=== PATIENT | male | born 2000 | race Two or more races ===

== ENCOUNTER 2019-07-03 09:48 | Emergency (ER) | payer OTHER ==
[2019-07-03 09:52] VITALS: BP 124/66; PULSE 81; TEMP 97.6; BMI 25.2
[2019-07-03] MEDS ORDERED: LORazepam 0.5 MG TABLET PO ONE (10:13)
--- NOTE | 2019-07-03 10:22 | PDOC ---
History of Present Illness - General History Source: Patient - History of Present Illness Timing/Duration: other (this am) <Fariba ColinPierreLori - Last Filed: 07/03/19 11:12> <Simi Franks - Last Filed: 07/03/19 12:13> - General Chief Complaint: Lightheaded Stated Complaint: DIZZINESS Time Seen by Provider: 07/03/19 10:08 Past History - Past Medical History COPD: No Other medical history: psoriasis - Suicide/Smoking/Psychosocial Hx Smoking History: Never smoked Information on smoking cessation initiated: No Hx Alcohol Use: No Drug/Substance Use Hx: No Substance Use Type: None <Fariba ColinPierreLori - Last Filed: 07/03/19 11:12> <Simi Franks - Last Filed: 07/03/19 12:13> - Past Medical History Allergies/Adverse Reactions: Allergies Allergy/AdvReac Type Severity Reaction Status Date / Time No Known Allergies Allergy Verified 07/03/19 09:52 Home Medications: Ambulatory Orders Famotidine [Pepcid] 40 mg PO DAILY #30 tablet 12/16/15 Fluoxetine HCl [Prozac] 20 mg PO DAILY 12/16/15 Ondansetron [Zofran *Odt*] 4 mg SL TID #30 od.tablet 12/16/15 Review of Systems - Review of Systems Constitutional: No: Chills, Fever HEENTM: No: Blurred Vision Respiratory: No: Cough, Shortness of Breath Cardiac (ROS): Yes: Lightheadedness. No: Chest Pain, Palpitations ABD/GI: No: Nausea, Vomiting Neurological: Yes: Dizziness. No: Headache, Numbness, Tingling, Weakness <Fariba ColinPierreLori - Last Filed: 07/03/19 11:12> *Physical Exam - Vital Signs Last Vital Signs Temp Pulse Resp BP Pulse Ox 97.6 F 81 17 124/66 100 07/03/19 09:50 07/03/19 09:50 07/03/19 09:50 07/03/19 09:50 07/03/19 09:50 - Physical Exam General Appearance: Yes: Appropriately Dressed. No: Apparent Distress HEENT: positive: Normal Voice Neck: positive: Supple Respiratory/Chest: positive: Lungs Clear, Normal Breath Sounds. negative: Respiratory Distress Cardiovascular: positive: Regular Rate, S1, S2 Integumentary: positive: Dry, Warm Neurologic: positive: Fully Oriented, Alert, Normal Mood/Affect, Motor Strength 5/5 <Kamryn Colin - Last Filed: 07/03/19 11:12> - Vital Signs Last Vital Signs Temp Pulse Resp BP Pulse Ox 97.6 F 81 17 124/66 100 07/03/19 09:50 07/03/19 09:50 07/03/19 09:50 07/03/19 09:50 07/03/19 09:50 <Simi Franks - Last Filed: 07/03/19 12:13> ED Treatment Course - Medications Given in the ED: ED Medications Discontinued Medications Generic Name Dose Route Start Last Admin Trade Name Florinda PRN Reason Stop Dose Admin Lorazepam 0.5 mg 07/03/19 10:13 07/03/19 10:36 Ativan - PO 07/03/19 10:14 0.5 mg ONCE ONE Administration <Simi Franks - Last Filed: 07/03/19 12:13> Medical Decision Making - Medical Decision Making 07/03/19 10:16 19-year-old male, history of ADHD and bipolar disorder, only on prozac currently , here with dizziness. Patient states while resting this a.m. suddenly had sensation of the room spinning w/ periods of feeling lightheaded. No exacerbating or alleviating factors, but has since improved. No headache, visual changes, nausea, vomiting, focal weakness, chest pain or shortness of breath. Pt states he's had similar episodes before. Of note, was seen here in 2014 for chest pain and dizziness with negative workup including TSH. Patient states he was recently restarted on Prozac but has taken Prozac in the past, and unsure if he had similar dizziness with meds. Also No SI or HI. States he currently feels mildly anxious See exam Dizziness Recurrent Neg w/u in past ?anxiety component -small dose of anxiolytic here -EKG -anticipate dc w/ psych and PMD f/u 07/03/19 11:12 EKG wnl. Pt well enough to be discharged to f/u with his psychiatrist and PMD <Kamryn Colin - Last Filed: 07/03/19 11:12> *DC/Admit/Observation/Transfer <Kamryn Colin - Last Filed: 07/03/19 11:12> - Attestations Physician Attestion: I reviewed the case with the mid-level practitioner and agree with the mid- level practitioner's assessment, diagnosis and disposition. <Simi Franks - Last Filed: 07/03/19 12:13> Diagnosis at time of Disposition: Dizziness - Discharge Dispostion Disposition: HOME Condition at time of disposition: Improved - Patient Instructions Additional Instructions: Please follow up with your psychiatrist and PMD Return to ED for worsening of symptoms
[2019-07-03] MEDS ORDERED: LORazepam 0.5 MG TABLET ONE (10:31)
--- NOTE | 2019-07-03 12:50 | EKG ---
Test Reason : Blood Pressure : / mmHG Vent. Rate : 084 BPM Atrial Rate : 084 BPM P-R Int : 146 ms QRS Dur : 086 ms QT Int : 364 ms P-R-T Axes : 070 084 051 degrees QTc Int : 430 ms NORMAL SINUS RHYTHM NORMAL ECG WHEN COMPARED WITH ECG OF 16-DEC-2015 19:24, NO SIGNIFICANT CHANGE WAS FOUND Confirmed by DEANNE BACON MD ([id number]) on 07/03/2019 12:50:47 PM Referred By: Confirmed By:DEANNE BACON MD
== END 2019-07-03 11:00 | disposition home or self-care (01) ==
LOC: JER 09:48
DX: R42 Dizziness and giddiness (principal); F31.9 Bipolar disorder, unspecified; F90.9 Attention-deficit hyperactivity disorder, unspecified type
CPT/HCPCS: 93005; 93010; 99281-25

== ENCOUNTER 2021-06-26 16:32 | Emergency (ER) | payer OTHER ==
[2021-06-26 16:42] VITALS: TEMP 98.7; BMI 23.3
[2021-06-26] MEDS ORDERED: morphine CARPU-JECT 4 MG/1 ML DISP.SYRIN IVPUSH ONE (17:01)
[2021-06-26] MEDS ORDERED: ONDANSETRON 4 MG/2 ML VIAL IVPUSH ONE (17:04)
[2021-06-26] MEDS ORDERED: SODIUM CHLORIDE 0.9% 1000 ML INFUS.BAG IV ONE (17:05)
[2021-06-26] MEDS ORDERED: morphine SULFATE 4 MG/ML VIAL ONE (17:05)
[2021-06-26] MEDS ORDERED: ONDANSETRON 4 MG/2 ML VIAL ONE (17:06)
[2021-06-26] MEDS ORDERED: morphine CARPU-JECT 2 MG/1 ML DISP.SYRIN IVPUSH ONE ×2 (17:15→21:27)
[2021-06-26] MEDS ORDERED: MORPHINE SULFATE 2 MG/ML VIAL ONE ×2 (17:17→21:34)
[2021-06-26] MEDS ORDERED: KETOROLAC TROMETHAMINE 15 MG/ML VIAL ONE ×2 (17:32→19:00)
[2021-06-26] MEDS ORDERED: KETOROLAC TROMETHAMINE 15 MG/ML VIAL IVPUSH ONE ×2 (17:32→18:58)
[2021-06-26 17:36] LABS: BASO % 0.5 % (0-2.0); EOS % 4.2 % (0-4.5); HEMATOCRIT 43.2 % (35.4-49); HEMOGLOBIN 15.1 GM/dL (11.7-16.9); LYMPH % 32.2 % (8-40); MCH 30.3 pg (25.7-33.7); MCHC 34.9 g/dl (32.0-35.9); MEAN CELL VOLUME 86.8 fl (80-96); MEAN PLT VOLUME 8.4 fl (7.5-11.1); MONO % 7.5 % (3.8-10.2); NEUT % 55.6 % (42.8-82.8); PLATELET COUNT 317 10^3/uL (134-434); RBC 4.98 M/mm3 (4.00-5.60); RDW 13.3 % (11.9-15.9); WHITE BLOOD COUNT 6.2 K/mm3 (4.0-10.0)
[2021-06-26 17:42] LABS: INR 1.04 (0.83-1.09); PROTHROMBIN TIME (PATIENT) 12.8 SEC (9.7-13.0)
[2021-06-26 17:45] LABS: ACTIVATED PTT 24.4 SECONDS (25.2-36.5)
[2021-06-26 17:56] LABS: EPI CELLS 9 /uL (0-25.1); HYALINE CASTS 1 /uL (0-3.1); PH,URINE 7.5 (5.0-8.0); URINE APPEARANCE CLOUDY; URINE BACTERIA 98 /uL (0-1359); URINE BILIRUBIN NEGATIVE (NEGATIVE); URINE COLOR ORANGE; URINE GLUCOSE (UA) NEGATIVE (NEGATIVE); URINE KETONE NEGATIVE (NEGATIVE); URINE LEUK ESTERASE NEGATIVE (NEGATIVE); URINE NITRITE NEGATIVE (NEGATIVE); URINE PROTEIN NEGATIVE (NEGATIVE); URINE RBC 7036 /uL (0-23.9); URINE WBC 15 /uL (0-25.8)
[2021-06-26 17:56] LABS: BLOOD UREA NITROGEN 17.4 mg/dL (7-18); CALCIUM 9.2 mg/dL (8.5-10.1)
[2021-06-26 17:57] LABS: ALBUMIN 4.2 g/dl (3.4-5.0)
[2021-06-26 18:01] LABS: BILIRUBIN,TOTAL 0.5 mg/dL (0.2-1); TOT PROT 8.1 g/dl (6.4-8.2)
[2021-06-26 18:10] LABS: LACTIC ACID 2.9 mmol/L (0.4-2.0)
[2021-06-26] MEDS ORDERED: SODIUM CHLORIDE 1,000 ML IV STA (19:35)
[2021-06-26 23:50] VITALS: BP 130/76; PULSE 96
== END 2021-06-26 23:51 | disposition home or self-care (01) ==
LOC: JER 16:32
PROC: 3E033GC Introduction of Other Therapeutic Substance into Peripheral Vein, Percutaneous Approach (ICD-10-PCS; principal; 2021-06-26)
DX: N20.0 Calculus of kidney (principal)
CPT/HCPCS: 36415; 71045-TC-FY; 74176-TC; 76775-TC; 80053; 81003; 83605; 83690; 85025; 85610; 85730; 86850; 86900; 86901; 87086; 99285-25; C9803; U0003; U0005

== ENCOUNTER 2021-07-01 05:25 | Inpatient (IN) | payer OTHER ==
[2021-07-01] MEDS ORDERED: morphine CARPU-JECT 2 MG/1 ML DISP.SYRIN IVPUSH ONE (05:50)
[2021-07-01] MEDS ORDERED: KETOROLAC TROMETHAMINE 15 MG/ML VIAL IVPUSH ONE (05:50)
[2021-07-01] MEDS ORDERED: MORPHINE SULFATE 2 MG/ML VIAL ONE (06:41)
[2021-07-01] MEDS ORDERED: KETOROLAC TROMETHAMINE 15 MG/ML VIAL ONE ×2 (06:41→13:02)
[2021-07-01] MEDS ORDERED: SODIUM CHLORIDE 1,000 ML IV STA ×2 (08:04→09:50)
[2021-07-01 08:43] LABS: BASO % 0.6 % (0-2.0); EOS % 5.5 % (0-4.5); HEMATOCRIT 40.3 % (35.4-49); HEMOGLOBIN 14.2 GM/dL (11.7-16.9); LYMPH % 20.1 % (8-40); MCH 30.6 pg (25.7-33.7); MCHC 35.2 g/dl (32.0-35.9); MEAN CELL VOLUME 86.9 fl (80-96); MONO % 8.7 % (3.8-10.2); NEUT % 65.1 % (42.8-82.8); PLATELET COUNT 279 10^3/uL (134-434); RBC 4.63 M/mm3 (4.00-5.60); RDW 13.1 % (11.9-15.9); WHITE BLOOD COUNT 9.4 K/mm3 (4.0-10.0)
[2021-07-01 08:54] LABS: INR 0.98 (0.83-1.09); PROTHROMBIN TIME (PATIENT) 11.9 SEC (9.7-13.0)
[2021-07-01 08:57] LABS: ACTIVATED PTT 29.2 SECONDS (25.2-36.5)
[2021-07-01 09:07] LABS: ALBUMIN 3.6 g/dl (3.4-5.0); BLOOD UREA NITROGEN 13.4 mg/dL (7-18); CALCIUM 8.8 mg/dL (8.5-10.1)
[2021-07-01 09:11] LABS: CREATININE 1.3 mg/dL (0.55-1.3)
[2021-07-01 09:12] LABS: BILIRUBIN,TOTAL 0.4 mg/dL (0.2-1); TOT PROT 6.9 g/dl (6.4-8.2)
[2021-07-01] MEDS ORDERED: MORPHINE SULFATE 2 MG/ML VIAL IVPUSH PRN ×2 (09:47→19:16)
[2021-07-01] MEDS ORDERED: KETOROLAC TROMETHAMINE 15 MG/ML VIAL IVPUSH PRN ×2 (09:47→19:16)
[2021-07-01] MEDS ORDERED: CEFTRIAXONE 1,000 MG in DEXTROSE 5%-WATER - 50 ML IVPB SCH (10:30)
[2021-07-01] MEDS ORDERED: CEFTRIAXONE 1 GM in DEXTROSE 5%-WATER - 50 ML IVPB SCH (10:45)
[2021-07-01] MEDS ORDERED: CEFTRIAXONE 1 GM in DEXTROSE 5%-WATER - 50 ML IVPB ONE (11:34)
[2021-07-01] MEDS ORDERED: TAMSULOSIN HCL 0.4 MG CAP PO ONE (11:39)
[2021-07-01] MEDS ORDERED: ONDANSETRON 4 MG/2 ML VIAL IVPUSH PRN ×3 (11:42→19:30)
[2021-07-01] MEDS ORDERED: SODIUM CHLORIDE 1,000 ML IV SCH (12:00)
[2021-07-01] MEDS ORDERED: TAMSULOSIN HCL 0.4 MG CAP ONE (13:02)
[2021-07-01] MEDS ORDERED: CEFTRIAXONE 1 GM/50 ML BAG ONE (13:03)
[2021-07-01 15:53] LABS: PH,URINE 6.5 (5.0-8.0); URINE APPEARANCE CLEAR; URINE BILIRUBIN NEGATIVE (NEGATIVE); URINE COLOR YELLOW; URINE GLUCOSE (UA) NEGATIVE (NEGATIVE); URINE KETONE NEGATIVE (NEGATIVE); URINE LEUK ESTERASE NEGATIVE (NEGATIVE); URINE NITRITE NEGATIVE (NEGATIVE); URINE PROTEIN NEGATIVE (NEGATIVE)
[2021-07-01 16:04] LABS: EPI CELLS 6 /uL (0-25.1); HYALINE CASTS 1 /uL (0-3.1); URINE BACTERIA 16 /uL (0-1359); URINE RBC 33 /uL (0-23.9); URINE WBC 18 /uL (0-25.8)
[2021-07-01] MEDS ORDERED: ACETAMINOPHEN 325 MG TABLET (FP) PO PRN ×2 (18:08→19:16)
[2021-07-01] MEDS ORDERED: SUCCINYLCHOLINE CHLORIDE 200 MG/10 ML SYRINGE ONE (18:10)
[2021-07-01] MEDS ORDERED: PROPOFOL 20 ML ONE ×3 (18:10)
[2021-07-01] MEDS ORDERED: GENTAMICIN SO4 80 MG/2 ML VIAL IVPB ONE (18:25)
[2021-07-01] MEDS ORDERED: IOHEXOL 180 MG/1 ML ML IJ ONE (18:26)
[2021-07-01 18:27] VITALS: BMI 23.1
[2021-07-01] MEDS ORDERED: GENTAMICIN SO4 80 MG/2 ML VIAL ONE (18:45)
[2021-07-01] MEDS ORDERED: DEXAMETHASONE SOD PHOSPHATE 4 MG/1 ML VIAL ONE (18:46)
[2021-07-01] MEDS ORDERED: KETOROLAC TROMETHAMINE 30 MG/1 ML VIAL ONE ×2 (18:46→19:22)
[2021-07-01] MEDS: ACETAMINOPHEN 1000 MG/100 ML VIAL (NON FORMULARY) IVPB ONE ×2 (19:15→21:31)
[2021-07-01] MEDS ORDERED: ACETAMINOPHEN INJECTION 100 ML IVPB ONE (19:22)
[2021-07-01] MEDS ORDERED: oxyCODONE HCL 5 MG TABLET PO PRN (19:30)
[2021-07-01] MEDS: SODIUM CHLORIDE 1,000 ML IV SCH (21:30)
[2021-07-01] MEDS ORDERED: MELATONIN 5 MG TABLETS PO SCH ×2 (22:00)
[2021-07-01] MEDS ORDERED: SENNOSIDES 8.6MG TABLET (FP) PO SCH ×2 (22:00)
[2021-07-02] MEDS: SODIUM CHLORIDE 1,000 ML IV SCH (07:40)
[2021-07-02] MEDS ORDERED: TAMSULOSIN HCL 0.4 MG CAP PO SCH (08:30)
[2021-07-02 09:36] LABS: HEMATOCRIT 37.9 % (35.4-49); HEMOGLOBIN 13.5 GM/dL (11.7-16.9); MCH 30.8 pg (25.7-33.7); MCHC 35.5 g/dl (32.0-35.9); MEAN CELL VOLUME 86.8 fl (80-96); MEAN PLT VOLUME 8.2 fl (7.5-11.1); PLATELET COUNT 303 10^3/uL (134-434); RBC 4.37 M/mm3 (4.00-5.60); RDW 12.9 % (11.9-15.9); WHITE BLOOD COUNT 9.4 K/mm3 (4.0-10.0)
[2021-07-02] MEDS ORDERED: POLYETHYLENE GLYCOL (HEALTHYLAX) 3350 17 GM PACKET PO SCH ×2 (10:00)
[2021-07-02] MEDS ORDERED: DOCUSATE SODIUM 100 MG CAPSULE (FP) PO SCH ×2 (10:00)
[2021-07-02 10:08] LABS: BLOOD UREA NITROGEN 10.7 mg/dL (7-18); MAGNESIUM 1.9 mg/dL (1.8-2.4)
[2021-07-02 10:11] LABS: CREATININE 0.8 mg/dL (0.55-1.3); PHOSPHOROUS 3.8 mg/dL (2.5-4.9)
[2021-07-02 14:28] VITALS: BP 128/56; PULSE 76; TEMP 98.9
== END 2021-07-02 18:45 | disposition home or self-care (01) | DRG 465 ==
LOC: JER 05:25 → JERBED 09:17 → J6S 14:39
PROVIDERS: ADMIT Internal Medicine; ATTEND Internal Medicine
PROC: BT1DZZZ Fluoroscopy of Right Kidney, Ureter and Bladder (ICD-10-PCS; 2021-07-01)
PROC: 0T768DZ Dilation of Right Ureter with Intraluminal Device, Via Natural or Artificial Opening Endoscopic (ICD-10-PCS; principal; 2021-07-01 17:30)
PROC: 0TJB8ZZ Inspection of Bladder, Via Natural or Artificial Opening Endoscopic (ICD-10-PCS; 2021-07-01 17:30)
DX: N13.2 Hydronephrosis with renal and ureteral calculous obstruction (principal); F41.8 Other specified anxiety disorders; N17.9 Acute kidney failure, unspecified; K59.00 Constipation, unspecified; R11.2 Nausea with vomiting, unspecified; R63.0 Anorexia; Z68.23 Body mass index [BMI] 23.0-23.9, adult
CPT/HCPCS: 36415; 74176-TC; 80048; 80053; 81003; 83735; 84100; 85025; 85027; 85610; 85730; 86850; 86900; 86901; 87086; 93005; 93010; 94760; 99285-25; C9803; J0131; U0003; U0005

== ENCOUNTER 2021-07-31 01:23 | Observation (INO) | payer OTHER ==
[2021-07-31 01:43] VITALS: BMI 22.3
[2021-07-31] MEDS ORDERED: ACETAMINOPHEN 1000 MG/100 ML VIAL (NON FORMULARY) IVPB ONE (02:37)
[2021-07-31] MEDS ORDERED: SODIUM CHLORIDE 0.9% 500 ML INFUS.BAG IV ONE (02:37)
[2021-07-31] MEDS ORDERED: morphine CARPU-JECT 2 MG/1 ML DISP.SYRIN IVPUSH ONE (02:38)
[2021-07-31] MEDS ORDERED: MORPHINE SULFATE 2 MG/ML VIAL ONE (02:41)
[2021-07-31 02:45] LABS: BASO % 0.8 % (0-2.0); EOS % 6.8 % (0-4.5); HEMATOCRIT 41.8 % (35.4-49); HEMOGLOBIN 14.6 GM/dL (11.7-16.9); LYMPH % 21.7 % (8-40); MCH 30.1 pg (25.7-33.7); MCHC 34.8 g/dl (32.0-35.9); MEAN CELL VOLUME 86.5 fl (80-96); MONO % 6.6 % (3.8-10.2); NEUT % 64.1 % (42.8-82.8); PLATELET COUNT 265 10^3/uL (134-434); RBC 4.84 M/mm3 (4.00-5.60); RDW 13.3 % (11.9-15.9); WHITE BLOOD COUNT 9.5 K/mm3 (4.0-10.0)
[2021-07-31 02:47] LABS: EPI CELLS 25 /uL (0-25.1); HYALINE CASTS 5 /uL (0-3.1); PH,URINE 5.5 (5.0-8.0); URINE APPEARANCE TURBID; URINE BILIRUBIN 1+ (NEGATIVE); URINE COLOR RED; URINE GLUCOSE (UA) NEGATIVE (NEGATIVE); URINE KETONE NEGATIVE (NEGATIVE); URINE LEUK ESTERASE 2+ (NEGATIVE); URINE NITRITE POSITIVE (NEGATIVE); URINE PROTEIN 3+ (NEGATIVE); URINE RBC 43053 /uL (0-23.9); URINE WBC 329 /uL (0-25.8)
[2021-07-31 02:53] LABS: INR 1.03 (0.83-1.09); PROTHROMBIN TIME (PATIENT) 12.7 SEC (9.7-13.0)
[2021-07-31 02:55] LABS: ACTIVATED PTT 30.6 SECONDS (25.2-36.5)
[2021-07-31 03:05] LABS: CALCIUM 8.8 mg/dL (8.5-10.1)
[2021-07-31 03:09] LABS: CREATININE 0.7 mg/dL (0.55-1.3)
[2021-07-31 03:10] LABS: BILIRUBIN,TOTAL 0.3 mg/dL (0.2-1); TOT PROT 7.3 g/dl (6.4-8.2)
[2021-07-31 03:17] LABS: URINE BACTERIA 2.7 /uL (0-1359)
[2021-07-31 03:18] LABS: URINE CRYSTALS NONE SEEN /hpf
[2021-07-31] MEDS ORDERED: CEFTRIAXONE 1 GM in DEXTROSE 5%-WATER - 100 ML IVPB ONE (03:29)
[2021-07-31] MEDS ORDERED: CEFTRIAXONE 1 GM/50 ML BAG ONE (03:52)
[2021-07-31] MEDS ORDERED: ACETAMINOPHEN 325 MG TABLET (FP) PO PRN (06:06)
[2021-07-31 06:51] VITALS: BP 106/63; PULSE 75; TEMP 97.7
[2021-07-31] MEDS ORDERED: KETOROLAC TROMETHAMINE 30 MG/1 ML VIAL IVPUSH ONE (07:27)
[2021-07-31] MEDS ORDERED: ACETAMINOPHEN 325 MG TABLET (FP) ONE (07:33)
[2021-07-31] MEDS ORDERED: TAMSULOSIN HCL 0.4 MG CAP ONE (07:33)
[2021-07-31] MEDS ORDERED: KETOROLAC TROMETHAMINE 30 MG/1 ML VIAL ONE (07:38)
[2021-07-31] MEDS ORDERED: KETOROLAC TROMETHAMINE 15 MG/ML VIAL IVPUSH PRN (08:09)
[2021-07-31] MEDS ORDERED: TAMSULOSIN HCL 0.4 MG CAP PO SCH (08:30)
[2021-08-01] MEDS ORDERED: CEFTRIAXONE 1 GM in DEXTROSE 5%-WATER - 50 ML IVPB SCH (10:00)
== END 2021-07-31 11:07 | disposition home or self-care (01) ==
LOC: SUATTDRO 01:23 → JER 01:23 → UNDOADMOB 04:32 → JERBED 04:32 → INTOOBSV 04:32 → JERBED 06:00
PROVIDERS: ADMIT Internal Medicine
PROC: 3E03329 Introduction of Other Anti-infective into Peripheral Vein, Percutaneous Approach (ICD-10-PCS; principal; 2021-07-31)
PROC: 3E0333Z Introduction of Anti-inflammatory into Peripheral Vein, Percutaneous Approach (ICD-10-PCS; 2021-07-31)
PROC: 3E033NZ Introduction of Analgesics, Hypnotics, Sedatives into Peripheral Vein, Percutaneous Approach (ICD-10-PCS; 2021-07-31)
DX: G89.18 Other acute postprocedural pain (principal); Y83.8 Other surgical procedures as the cause of abnormal reaction of the patient, or of later complication, without mention of misadventure at the time of the procedure; N20.0 Calculus of kidney; R30.0 Dysuria; Z95.5 Presence of coronary angioplasty implant and graft
CPT/HCPCS: 36415; 74176-TC; 80053; 81003; 85025; 85610; 85730; 87086; 93005; 93010; 96361; 96365; 96375; 99285-25; C9803; G0378; U0003; U0005

== ENCOUNTER 2021-08-05 15:50 | Emergency (ER) | payer OTHER ==
[2021-08-05 16:11] VITALS: BP 127/87; PULSE 90; TEMP 98.3; BMI 23.8
[2021-08-05] MEDS ORDERED: morphine CARPU-JECT 4 MG/1 ML DISP.SYRIN IVPUSH ONE (16:36)
[2021-08-05] MEDS ORDERED: ONDANSETRON 4 MG/2 ML VIAL IVPUSH ONE (16:36)
[2021-08-05] MEDS ORDERED: SODIUM CHLORIDE 1,000 ML IV STA (16:36)
[2021-08-05] MEDS ORDERED: morphine SULFATE 4 MG/ML VIAL ONE (17:01)
[2021-08-05] MEDS ORDERED: ONDANSETRON 4 MG/2 ML VIAL ONE (17:02)
[2021-08-05 17:47] LABS: EPI CELLS >36 /uL (0-25.1); HYALINE CASTS 5 /uL (0-3.1); URINE APPEARANCE CLOUDY; URINE BACTERIA 48 /uL (0-1359); URINE BILIRUBIN NEGATIVE (NEGATIVE); URINE COLOR DK YELLOW; URINE GLUCOSE (UA) NEGATIVE (NEGATIVE); URINE KETONE TRACE (NEGATIVE); URINE LEUK ESTERASE 1+ (NEGATIVE); URINE NITRITE NEGATIVE (NEGATIVE); URINE PROTEIN 3+ (NEGATIVE); URINE RBC 7829 /uL (0-23.9); URINE WBC 325 /uL (0-25.8)
[2021-08-05 17:49] LABS: BASO % 0.8 % (0-2.0); EOS % 8.5 % (0-4.5); HEMOGLOBIN 15.4 GM/dL (11.7-16.9); LYMPH % 33.3 % (8-40); MCH 30.9 pg (25.7-33.7); MCHC 34.9 g/dl (32.0-35.9); MEAN CELL VOLUME 88.4 fl (80-96); MEAN PLT VOLUME 8.2 fl (7.5-11.1); MONO % 7.8 % (3.8-10.2); NEUT % 49.6 % (42.8-82.8); PLATELET COUNT 291 10^3/uL (134-434); RBC 4.97 M/mm3 (4.00-5.60); RDW 13.4 % (11.9-15.9); WHITE BLOOD COUNT 8.4 K/mm3 (4.0-10.0)
[2021-08-05 18:07] LABS: ALBUMIN 4.2 g/dl (3.4-5.0); BLOOD UREA NITROGEN 17.5 mg/dL (7-18); CALCIUM 9.2 mg/dL (8.5-10.1)
[2021-08-05 18:10] LABS: CREATININE 0.8 mg/dL (0.55-1.3)
[2021-08-05 18:12] LABS: BILIRUBIN,TOTAL 0.6 mg/dL (0.2-1); TOT PROT 7.6 g/dl (6.4-8.2)
== END 2021-08-05 19:09 | disposition home or self-care (01) ==
LOC: JER 15:50
PROC: 3E033NZ Introduction of Analgesics, Hypnotics, Sedatives into Peripheral Vein, Percutaneous Approach (ICD-10-PCS; principal; 2021-08-05)
PROC: 3E033GC Introduction of Other Therapeutic Substance into Peripheral Vein, Percutaneous Approach (ICD-10-PCS; 2021-08-05)
PROC: 3E0337Z Introduction of Electrolytic and Water Balance Substance into Peripheral Vein, Percutaneous Approach (ICD-10-PCS; 2021-08-05)
DX: N23 Unspecified renal colic (principal)
CPT/HCPCS: 36415; 74176-TC; 80053; 81003; 85025; 87086; 96361; 96374; 96375; 99284-25

== ENCOUNTER 2021-08-12 15:08 | Emergency (ER) | payer OTHER ==
[2021-08-12 15:21] VITALS: BP 122/74; PULSE 89; TEMP 98; BMI 23.8
== END 2021-08-12 16:09 | disposition home or self-care (01) ==
LOC: JER 15:08
DX: R10.2 Pelvic and perineal pain (principal); Z96.0 Presence of urogenital implants
CPT/HCPCS: 99284-25

== ENCOUNTER 2021-08-22 15:16 | Emergency (ER) | payer OTHER ==
[2021-08-22 15:38] VITALS: BP 117/85; PULSE 85; TEMP 97.4; BMI 23.8
[2021-08-22] MEDS ORDERED: KETOROLAC TROMETHAMINE 60 MG/2 ML VIAL IM ONE (16:36)
[2021-08-22] MEDS ORDERED: ACETAMINOPHEN 500 MG TABLET (FP) PO ONE (16:37)
[2021-08-22] MEDS ORDERED: KETOROLAC TROMETHAMINE 60 MG/2 ML VIAL ONE (16:50)
[2021-08-22] MEDS ORDERED: ACETAMINOPHEN 325 MG TABLET (FP) ONE (16:51)
== END 2021-08-22 16:57 | disposition home or self-care (01) ==
LOC: JER 15:16
PROC: 3E023GC Introduction of Other Therapeutic Substance into Muscle, Percutaneous Approach (ICD-10-PCS; principal; 2021-08-22)
DX: R10.9 Unspecified abdominal pain (principal)
CPT/HCPCS: 99284-25

== ENCOUNTER 2021-08-25 04:44 | Day surgery (SDC) | payer OTHER ==
[2021-08-22 10:33] VITALS: BMI 23.8
[2021-08-25] MEDS ORDERED: MIDAZOLAM HCL 2 MG/2 ML SINGLE DOSE VIAL ONE (20:05)
[2021-08-25] MEDS ORDERED: oxyCODONE HCL 5 MG TABLET ONE (21:38)
[2021-08-25] MEDS ORDERED: ACETAMINOPHEN 325 MG TABLET (FP) ONE (21:38)
[2021-08-25 21:51] VITALS: TEMP 97.8
[2021-08-25 21:55] VITALS: BP 114/72; PULSE 89
[2021-08-25] MEDS ORDERED: oxyCODONE HCL 5 MG TABLET PO ONE (22:01)
== END 2021-08-25 21:57 | disposition home or self-care (01) ==
LOC: JASU-SURG 04:44
PROVIDERS: ATTEND Urology
PROC: 0TF3XZZ Fragmentation in Right Kidney Pelvis, External Approach (ICD-10-PCS; principal; 2021-08-25 16:30)
DX: N20.0 Calculus of kidney (principal)

== ENCOUNTER 2021-09-20 09:28 | Inpatient (IN) | payer OTHER ==
[2021-09-20] MEDS ORDERED: SODIUM CHLORIDE 1,891 ML IV ONE (09:51)
[2021-09-20] MEDS ORDERED: ACETAMINOPHEN 1000 MG/100 ML VIAL IVPB ONE ×2 (09:52→13:59)
[2021-09-20] MEDS ORDERED: ACETAMINOPHEN INJECTION 100 ML IVPB ONE ×2 (10:07→14:37)
[2021-09-20 10:39] LABS: BASO % 0.2 % (0-2.0); HEMATOCRIT 44.3 % (35.4-49); HEMOGLOBIN 15.2 GM/dL (11.7-16.9); LYMPH % 3.1 % (8-40); MCH 30.1 pg (25.7-33.7); MCHC 34.5 g/dl (32.0-35.9); MEAN CELL VOLUME 87.5 fl (80-96); MEAN PLT VOLUME 8.5 fl (7.5-11.1); MONO % 5.9 % (3.8-10.2); NEUT % 90.8 % (42.8-82.8); PLATELET COUNT 265 10^3/uL (134-434); RBC 5.06 M/mm3 (4.00-5.60); RDW 13.4 % (11.9-15.9); WHITE BLOOD COUNT 18.7 K/mm3 (4.0-10.0)
[2021-09-20 10:46] LABS: INR 1.2 (0.83-1.09); PROTHROMBIN TIME (PATIENT) 13.5 SEC (9.7-13.0)
[2021-09-20 10:48] LABS: ACTIVATED PTT 28.2 SECONDS (25.2-36.5)
[2021-09-20 11:04] LABS: CHLORIDE 102 mmol/L (98-107); SODIUM 135 mmol/L (136-145)
[2021-09-20 11:06] LABS: CALCIUM 9.2 mg/dL (8.5-10.1)
[2021-09-20 11:07] LABS: ALBUMIN 4.2 g/dl (3.4-5.0); ANION GAP 7 MMOL/L (8-16); BLOOD UREA NITROGEN 15.2 mg/dL (7-18); CO2 27 mmol/L (21-32); GLUCOSE,RANDOM 95 mg/dL (74-106)
[2021-09-20 11:09] LABS: EPI CELLS 0 /uL (0-25.1); HYALINE CASTS 3 /uL (0-3.1); URINE APPEARANCE CLEAR; URINE BACTERIA 339 /uL (0-1359); URINE BILIRUBIN NEGATIVE (NEGATIVE); URINE COLOR YELLOW; URINE GLUCOSE (UA) NEGATIVE (NEGATIVE); URINE KETONE 1+ (NEGATIVE); URINE LEUK ESTERASE 2+ (NEGATIVE); URINE NITRITE NEGATIVE (NEGATIVE); URINE PROTEIN 1+ (NEGATIVE); URINE RBC 499 /uL (0-23.9); URINE WBC 191 /uL (0-25.8)
[2021-09-20] MEDS ORDERED: ONDANSETRON 4 MG/2 ML VIAL IVPUSH ONE (11:09)
[2021-09-20 11:10] LABS: CREATININE 0.9 mg/dL (0.55-1.3); SGOT/AST 11 U/L (15-37); SGPT/ALT 19 U/L (13-61)
[2021-09-20 11:12] LABS: BILIRUBIN,TOTAL 1.1 mg/dL (0.2-1); TOT PROT 7.4 g/dl (6.4-8.2)
[2021-09-20 11:13] LABS: VENOUS BASE EXCESS -2.2 mmol/L (-2-2); VENOUS O2 SATURATION 81.3 % (70-80); VENOUS PCO2 39.8 mmHg (38-52); VENOUS PH 7.375 (7.310-7.410)
[2021-09-20 11:13] LABS: ALK PHOS 63 U/L (45-117)
[2021-09-20] MEDS ORDERED: ONDANSETRON 4 MG/2 ML VIAL ONE (11:16)
[2021-09-20] MEDS ORDERED: CEFTRIAXONE 1 GM/50 ML BAG ONE (11:24)
[2021-09-20] MEDS ORDERED: POTASSIUM CHLORIDE TABS 20 MEQ TABLET.ER (FP) PO ONE ×2 (12:25→12:59)
[2021-09-20] MEDS: LACTATED RINGERS SOLUTION 1,000 ML/1,000 ML INFUS.BAG IV SCH ×2 (13:25→20:53)
[2021-09-20] MEDS ORDERED: METOCLOPRAMIDE HCL INJECTION 10 MG/2 ML VIAL IVPUSH ONE (13:53)
[2021-09-20] MEDS ORDERED: METOCLOPRAMIDE HCL INJECTION 10 MG/2 ML VIAL ONE (13:58)
[2021-09-20] MEDS ORDERED: IBUPROFEN 800 MG/8 ML IJ IVPB ONE ×2 (18:17)
[2021-09-20] MEDS ORDERED: morphine SULFATE 4 MG/ML VIAL IVPUSH ONE (20:19)
[2021-09-20] MEDS: ONDANSETRON 4 MG/2 ML VIAL IVPUSH PRN (20:49)
[2021-09-20] MEDS ORDERED: DEXTROSE 5%-0.45% SALINE 1,000 ML IV SCH (23:45)
[2021-09-21] MEDS: ACETAMINOPHEN 1000 MG/100 ML VIAL IVPB PRN ×4 (00:05→22:12)
[2021-09-21] MEDS ORDERED: morphine SULFATE 4 MG/ML VIAL IVPUSH ONE ×2 (01:17→11:45)
[2021-09-21 04:30] VITALS: BMI 23.9
[2021-09-21] MEDS: LACTATED RINGERS SOLUTION 1,000 ML/1,000 ML INFUS.BAG IV SCH ×3 (07:44→15:14)
[2021-09-21] MEDS: ONDANSETRON 4 MG/2 ML VIAL IVPUSH PRN ×2 (07:44→13:07)
[2021-09-21 09:03] LABS: HEMATOCRIT 38.3 % (35.4-49); HEMOGLOBIN 13.4 GM/dL (11.7-16.9); MCH 30.7 pg (25.7-33.7); MEAN CELL VOLUME 87.6 fl (80-96); MEAN PLT VOLUME 8.4 fl (7.5-11.1); PLATELET COUNT 201 10^3/uL (134-434); RBC 4.37 M/mm3 (4.00-5.60); RDW 13.3 % (11.9-15.9); WHITE BLOOD COUNT 29.3 K/mm3 (4.0-10.0)
[2021-09-21 09:15] LABS: BLOOD UREA NITROGEN 11.5 mg/dL (7-18); CALCIUM 8.3 mg/dL (8.5-10.1)
[2021-09-21 09:18] LABS: CREATININE 1.1 mg/dL (0.55-1.3)
[2021-09-21] MEDS ORDERED: cefTRIAXone SODIUM 1 GM VIAL ONE (09:18)
[2021-09-21] MEDS ORDERED: DEXTROSE 5%-WATER - 50 ML IVPB ONE ×3 (09:18→17:38)
[2021-09-21 09:19] LABS: TOT PROT 5.9 g/dl (6.4-8.2)
[2021-09-21 09:25] LABS: ALBUMIN 2.9 g/dl (3.4-5.0)
[2021-09-21] MEDS ORDERED: VANCOMYCIN/WATER BAGS 1,250 MG/250 ML BAG IVPB ONE (10:00)
[2021-09-21] MEDS ORDERED: CEFTRIAXONE 1 GM in DEXTROSE 5%-WATER - 50 ML IVPB SCH (10:00)
[2021-09-21 10:54] LABS: ANISOCYTOSIS 0; HELMET CELLS 0; HOWELL-JOLLY BODIES 0; MACROCYTOSIS 0; OVALOCYTE 0; PLATELET ESTIMATE NORMAL; ROULEAU 0; SICKELED CELLS 0; TARGET CELLS 0; TEAR DROP CELLS 0; TOXIC GRANULATION 0
[2021-09-21] MEDS ORDERED: CEFEPIME HCL 1 GM VIAL (RESTRICTED TO ID) ONE ×2 (11:32→17:38)
[2021-09-21] MEDS: CEFEPIME 1 GM in DEXTROSE 5%-WATER - 50 ML IVPB SCH ×2 (11:33→18:05)
[2021-09-21] MEDS ORDERED: PT OWN MED DRAWER 7, Y5N ONE (13:04)
[2021-09-21] MEDS: ENOXAPARIN NA (PORCINE) 40 MG/0.4 ML DISP.SYRIN SQ SCH (15:23)
[2021-09-21] MEDS: morphine SULFATE 4 MG/ML VIAL IVPUSH PRN (18:12)
[2021-09-21] MEDS: IBUPROFEN 600 MG TABLET (FP) PO PRN (21:11)
[2021-09-21] MEDS: VANCOMYCIN 1 GRAM (PRE-DOCKED) 1,000 MG/250 ML BAG IVPB SCH (21:12)
[2021-09-22] MEDS: morphine SULFATE 4 MG/ML VIAL IVPUSH PRN ×4 (00:15→20:13)
[2021-09-22] MEDS ORDERED: DEXTROSE 5%-WATER - 50 ML IVPB ONE ×2 (02:56→09:12)
[2021-09-22] MEDS ORDERED: CEFEPIME HCL 1 GM VIAL (RESTRICTED TO ID) ONE ×2 (02:56→09:12)
[2021-09-22] MEDS: CEFEPIME 1 GM in DEXTROSE 5%-WATER - 50 ML IVPB SCH ×2 (02:58→09:16)
[2021-09-22] MEDS: IBUPROFEN 600 MG TABLET (FP) PO PRN ×2 (05:03→16:48)
[2021-09-22 08:39] LABS: HEMATOCRIT 36.5 % (35.4-49); HEMOGLOBIN 12.8 GM/dL (11.7-16.9); MCH 30.5 pg (25.7-33.7); MEAN PLT VOLUME 8.7 fl (7.5-11.1); PLATELET COUNT 214 10^3/uL (134-434); RDW 13.5 % (11.9-15.9); WHITE BLOOD COUNT 22.1 K/mm3 (4.0-10.0)
[2021-09-22] MEDS: ENOXAPARIN NA (PORCINE) 40 MG/0.4 ML DISP.SYRIN SQ SCH (09:18)
[2021-09-22 09:44] LABS: BLOOD UREA NITROGEN 11.1 mg/dL (7-18); CALCIUM 8.9 mg/dL (8.5-10.1)
[2021-09-22 09:46] LABS: ALBUMIN 2.7 g/dl (3.4-5.0)
[2021-09-22 09:48] LABS: CREATININE 0.7 mg/dL (0.55-1.3)
[2021-09-22 09:50] LABS: BILIRUBIN,TOTAL 0.5 mg/dL (0.2-1); TOT PROT 5.7 g/dl (6.4-8.2)
[2021-09-22] MEDS: VANCOMYCIN 1 GRAM (PRE-DOCKED) 1,000 MG/250 ML BAG IVPB SCH ×2 (10:18→21:16)
[2021-09-22 11:15] LABS: ANISOCYTOSIS 1+; MACROCYTOSIS 1+; PLATELET ESTIMATE NORMAL
[2021-09-23] MEDS: IBUPROFEN 600 MG TABLET (FP) PO PRN (02:26)
[2021-09-23] MEDS: LACTATED RINGERS SOLUTION 1,000 ML/1,000 ML INFUS.BAG IV SCH ×3 (03:42→20:36)
[2021-09-23] MEDS: morphine SULFATE 4 MG/ML VIAL IVPUSH PRN ×3 (03:51→20:34)
[2021-09-23] MEDS: VANCOMYCIN 1 GRAM (PRE-DOCKED) 1,000 MG/250 ML BAG IVPB SCH (09:06)
[2021-09-23] MEDS: ENOXAPARIN NA (PORCINE) 40 MG/0.4 ML DISP.SYRIN SQ SCH ×2 (09:06→09:09)
[2021-09-23 09:50] LABS: HEMATOCRIT 36.9 % (35.4-49); HEMOGLOBIN 12.8 GM/dL (11.7-16.9); MCH 30.5 pg (25.7-33.7); MCHC 34.7 g/dl (32.0-35.9); MEAN CELL VOLUME 87.9 fl (80-96); MEAN PLT VOLUME 8.3 fl (7.5-11.1); PLATELET COUNT 259 10^3/uL (134-434); RBC 4.19 M/mm3 (4.00-5.60); RDW 13.4 % (11.9-15.9)
[2021-09-23 10:29] LABS: CALCIUM 8.4 mg/dL (8.5-10.1)
[2021-09-23 10:30] LABS: BLOOD UREA NITROGEN 6.7 mg/dL (7-18)
[2021-09-23 10:33] LABS: CREATININE 0.7 mg/dL (0.55-1.3)
[2021-09-23] MEDS ORDERED: PT OWN MED DRAWER 7, Y5N ONE (20:47)
[2021-09-23] MEDS: AMOXICILLIN 500 MG CAPSULE (FP) PO SCH (21:16)
[2021-09-24] MEDS: LACTATED RINGERS SOLUTION 1,000 ML/1,000 ML INFUS.BAG IV SCH (04:37)
[2021-09-24] MEDS ORDERED: PT OWN MED DRAWER 7, Y5N ONE (05:10)
[2021-09-24] MEDS: AMOXICILLIN 500 MG CAPSULE (FP) PO SCH ×2 (05:15→13:58)
[2021-09-24 06:33] VITALS: BP 118/69; PULSE 85; TEMP 99.4
[2021-09-24 08:52] LABS: HEMATOCRIT 39.7 % (35.4-49); HEMOGLOBIN 13.9 GM/dL (11.7-16.9); MCH 30.3 pg (25.7-33.7); MEAN CELL VOLUME 86.7 fl (80-96); MEAN PLT VOLUME 7.6 fl (7.5-11.1); PLATELET COUNT 299 10^3/uL (134-434); RBC 4.57 M/mm3 (4.00-5.60); RDW 13.2 % (11.9-15.9); WHITE BLOOD COUNT 9.8 K/mm3 (4.0-10.0)
[2021-09-24] MEDS: ENOXAPARIN NA (PORCINE) 40 MG/0.4 ML DISP.SYRIN SQ SCH (10:08)
== END 2021-09-24 14:20 | disposition home or self-care (01) | DRG 466 ==
LOC: JER 09:28 → JERBED 13:53 → J8W 19:38
PROVIDERS: ADMIT Family Medicine; ATTEND Family Medicine
DX: T83.592A Infection and inflammatory reaction due to indwelling ureteral stent, initial encounter (principal); A41.9 Sepsis, unspecified organism; T81.44XA Sepsis following a procedure, initial encounter; D72.829 Elevated white blood cell count, unspecified; N39.0 Urinary tract infection, site not specified; R11.0 Nausea; R30.0 Dysuria; R31.9 Hematuria, unspecified; B95.2 Enterococcus as the cause of diseases classified elsewhere; R50.9 Fever, unspecified; Y83.9 Surgical procedure, unspecified as the cause of abnormal reaction of the patient, or of later complication, without mention of misadventure at the time of the procedure
CPT/HCPCS: 36415; 71045-TC-FY; 74177-TC; 80048; 80053; 81003; 82803; 83605; 84484; 85025; 85027; 85610; 85730; 87040; 87086; 87186; 93005; 93010; 99285-25; C9803; J0131; Q9967; U0003; U0005

== ENCOUNTER 2022-10-21 15:07 | Emergency (ER) | payer OTHER ==
[2022-10-21 15:48] VITALS: BP 129/79; PULSE 100; RESP 20; TEMP 98.5; BMI 25.4
[2022-10-21] MEDS ORDERED: chlordiazePOXIDE HCL 25 MG CAPSULE PO ONE (16:52)
[2022-10-21] MEDS ORDERED: chlordiazePOXIDE HCL 25 MG CAPSULE ONE (17:08)
== END 2022-10-21 17:30 | disposition home or self-care (01) ==
LOC: JER 15:07
DX: F10.139 Alcohol abuse with withdrawal, unspecified (principal); F19.230 Other psychoactive substance dependence with withdrawal, uncomplicated
CPT/HCPCS: 99283-25